=== PATIENT | female | born 1975 | race Caucasian/White ===

== ENCOUNTER → 2016-12-01 | Outpatient (CLI) | payer BC, OTHER ==
[~2016-12-01] MED LIST: ADAL40PE SQ; BUPR75TA5 PO; ESCI5TAB8 PO; HYDR-2666 PO; PROAIR HFA8.5 GM INH; TRAM50TA PO
--- NOTE | 2016-12-01 12:25 | KCIC ---
two views left knee Indication: Reason For Study Reason: CHRONIC LEFT KNEE PAIN, ARTHRITIS / Spl. Instructions: / History: Findings: There is no fracture or dislocation. Joint spaces are well maintained. No periosteal reaction or focal bone lesion. No evidence for joint effusion. Impression: Negative exam of the left knee. Electronically signed by: Keith Owens (December 01, 2016 12:23:44)
== END | disposition home or self-care (01) ==
LOC: KCIC 11:50
PROVIDERS: ATTEND Internal Medicine Rheumatology
DX: M17.12 Unilateral primary osteoarthritis, left knee (principal); G89.29 Other chronic pain
CPT/HCPCS: 73560

== ENCOUNTER 2019-10-22 16:33 | Emergency (ER) | payer BC ==
[~2019-10-22] VITALS: Ht 170.2 cm; Wt 79.5 kg
[~2019-10-22 16:33] MED LIST changes: +ALBU2.5V8 INH; -ESCI5TAB8 PO; -HYDR-2666 PO; +HYDR-2761 PO; +LEXAPRO5 MG PO; -PROAIR HFA8.5 GM INH
--- NOTE | 2019-10-22 17:44 | RAD ---
Single view chest dated 10/22/2019: No comparison available. Clinical Indication: Cough and shortness of breath. Findings: Single upright portable exam of the chest was performed. Heart size and mediastinal contours are within normal limits given technique. The lungs are clear without evidence of focal consolidation. Vascular interstitium is within normal limits. Impression:: Negative portable chest. Electronically signed by: Jorge Schmitz MD (10/22/2019 5:41 PM) [id number]
--- NOTE | 2019-10-22 18:47 | PHYS DOC ---
Past Medical History Past Medical History: Asthma, Fibromyalgia Additional Past Medical Histor: CELIAC,CHORNES,SORARTHRITIS (JANINA BROWN APRN) Past Surgical History: No Surgical History (JANINA BROWN APRN) Smoking Status: Never Smoker Alcohol Use: Rarely (JANINA BROWN APRN) Adult General Chief Complaint Chief Complaint: SHORTNESS OF BREATH [facility] HPI Patient is a 44 year old female with history of asthma, psoriatic arthritis, celiac disease, who presents to the ED today complaining of a cough which shortness of breath for 3 days. Patient reports the [id number] tested positive for COVID 19 on September 25 2019 and that was the last time she had contact with him. 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 Denies any fever. (JANINA BROWN APRN) Review of Systems Review of Systems Constitutional: Denies fever or chills [] Eyes: Denies change in visual acuity, redness, or eye pain [] HENT: Denies nasal congestion or sore throat [] Respiratory: Reports cough and shortness of breath [] Cardiovascular: No additional information not addressed in HPI [] GI: Denies abdominal pain, nausea, vomiting, bloody stools or diarrhea [] : Denies dysuria or hematuria [] Musculoskeletal: Denies back pain or joint pain [] Integument: Denies rash or skin lesions [] Neurologic: Denies headache, focal weakness or sensory changes [] All other systems were reviewed and found to be within normal limits, except as documented in this note. (JANINA BROWN APRN) Allergies Allergies Allergies Coded Allergies Type Severity Reaction Last Updated Verified No Known Allergies Allergy Unknown 09/02/15 Yes (NIRMAL COHEN DO) Physical Exam Physical Exam Constitutional: Well developed, well nourished, no acute distress, non-toxic appearance. [] HENT: Normocephalic, atraumatic, bilateral external ears normal, oropharynx moist, no oral exudates, nose normal. [] Eyes: PERRLA, EOMI, conjunctiva normal, no discharge. [] Neck: Normal range of motion, no tenderness, supple, no stridor. [] Cardiovascular:Heart rate regular rhythm, no murmur [] Lungs & Thorax: Bilateral breath sounds clear to auscultation [] Abdomen: Bowel sounds normal, soft, no tenderness, no masses, no pulsatile masses. [] Skin: Warm, dry, no erythema, no rash. [] Back: No tenderness, no CVA tenderness. [] Extremities: No tenderness, no cyanosis, no clubbing, ROM intact, no edema. [] Neurologic: Alert and oriented X 3, normal motor function, normal sensory function, no focal deficits noted. [] Psychologic: Affect normal, judgement normal, mood normal. [] (JANINA BROWN APRN) Current Patient Data Vital Signs Vital Signs Date Time Temp Pulse Resp B/P (MAP) Pulse Ox O2 Delivery O2 Flow Rate FiO2 10/22/19 18:49 76 128/86 (100) 97 Room Air 10/22/19 17:22 98.3 18 98.3 (BEEPALLAN PATRICIALI E DO) EKG EKG [] (JANINA BROWN APRN) Radiology/Procedures Radiology/Procedures []PROCEDURE: CHEST AP ONLY Single view chest dated 10/22/2019: No comparison available. Clinical Indication: Cough and shortness of breath. Findings: Single upright portable exam of the chest was performed. Heart size and mediastinal contours are within normal limits given technique. The lungs are clear without evidence of focal consolidation. Vascular interstitium is within normal limits. Impression:: Negative portable chest. Electronically signed by: Jorge Schmitz MD (10/22/2019 5:41 PM) [id number] DICTATED and SIGNED BY: JORGE SCHMITZ MD DATE: 10/22/19 174 (JANINA BROWN APRN) Course & Med Decision Making Course & Med Decision Making Pertinent Labs and Imaging studies reviewed. (See chart for details) This is a 44-year-old female patient presenting to the ED today with cough and shortness of breath, symptoms began 3 days ago. Oxygen saturation on arrival to the ED is above 98% on room air. Chest x-ray is negative. 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 Patient's symptoms are mild. Recommended she contact the PCP and they can order her COVID 19 testing otherwise she does not meet inpatient criteria for further COVID19 testing. She is also afebrile. (JANINA BROWN APRN) Dragon Disclaimer Dragon Disclaimer This electronic medical record was generated, in whole or in part, using a voice recognition dictation system. (JANINA BROWN APRN) Attending Signature I have participated in the care of this patient and I have reviewed and agree with all pertinent clinical information above including history, exam, and recommendations. (NIRMAL COHEN DO) Departure Departure Impression: Primary Impression: Cough Additional Impression: Shortness of breath Disposition: HOME, SELF-CARE Condition: STABLE Referrals: VIVI SOSA MD (PCP) Please follow-up with your doctor in the course of this week or next week Patient Instructions: Cough, Adult, [id number], Shortness of Breath, [id number] Additional Instructions: Your chest x-ray was negative in the emergency room, oxygen saturation is above 97% on room air. Please follow-up with your doctor in the course of this week or next week. Continue using your breathing treatments as needed at home. Call your primary care doctor tomorrow and see if they can order you COVID 19 test ing. Problem Qualifiers JANINA BROWN APRN Oct 22, 2019 18:47 NIRMAL COHEN DO Oct 24, 2019 10:21
[2019-10-22 18:49] VITALS: BP 128/86
== END 2019-10-22 19:00 | disposition home or self-care (01) ==
LOC: ER 16:33
DX: R05 Cough (principal); R06.02 Shortness of breath; J45.909 Unspecified asthma, uncomplicated; M79.7 Fibromyalgia; Z98.890 Other specified postprocedural states
CPT/HCPCS: 71045; 99283